=== PATIENT | female | born 1945 | race Caucasian/White ===

== ENCOUNTER 2023-06-25 15:51 | Emergency (ER) | payer MEDICARE, SELFPAY ==
[2023-06-25 15:55] VITALS: BP 162/80; PULSE 100; RESP 16; TEMP 36.7; O2SAT 95; BMI 22.6
--- NOTE | 2023-06-25 16:21 | ED.ABDPAIN ---
HPI - Abdominal Pain <Rosemarie Deluca PA-C - Last Filed: 06/25/23 19:14> General Chief Complaint: Abdominal Pain Stated Complaint: Thinks bowel blockage Time Seen by Provider: 06/25/23 16:04 Source: patient and family Mode of arrival: Wheelchair History of Present Illness HPI narrative: 78-year-old female here in the ED for constipation x1 week. States she has been in bed most of the time due to a knee and shoulder injury. She denies taking opioids. She has tried a Dulcolax suppository and magnesium citrate, other OTC medications without relief. She is passing gas but only a little bit. She reports 7/10 pain at this time. She denies vomiting, fever, chills. patient states she has history of fecal impaction but no history of bowel obstruction. No prior abdominal surgeries. She just took the magnesium citrate 2 hours [employer]. States she has not been hydrating much recently. States the pain comes and goes but is not persistent and feels like gas. States this feels like the time that she had an impaction. States she was manually disimpacted at that time but the treatment that actually helped Was the Fleet enema. Related Data Previous Rx's Medication Instructions Recorded peg 3350-electrolytes 236 240 ml PO Q10M #4,000 mL 06/25/23 gram-22.74 gram-6.74 gram-5.86 gram solution (Golytely) polyethylene glycol 3350 17 17 g PO DAILY #238 grams 06/25/23 gram/dose oral powder (Miralax) Allergies Allergy/AdvReac Type Severity Reaction Status Date / Time SULFA Allergy Unknown SEVERE Uncoded 01/16/18 11:44 ITCHING ON PALMS AND BOTTOM OF FEET AND ANXIOUS Review of Systems <Rosemarie Deluca PA-C - Last Filed: 06/25/23 19:14> Review of Systems ROS Unobtainable: All systems reviewed & are unremarkable except as noted in HPI and below Patient History <Rosemarie Deluca PA-C - Last Filed: 06/25/23 19:14> Social History Smoking Status: Never smoker Smoking Status: Never smoker Substance Use Type: does not use Exam <Rosemarie Deluca PA-C - Last Filed: 06/25/23 19:14> Narrative Exam Narrative: GENERAL: [78] year old patient appears stated age. Well-developed patient, in mild distress. HEAD: Atraumatic. Normocephalic. EYES: Pupils equal round and reactive. Extraocular motions intact. No scleral icterus. No injection or drainage. ENT: Nose without bleeding, purulent drainage. Throat without erythema, tonsillar hypertrophy or exudate. Airway patent. NECK: Trachea midline. Non tender CARDIOVASCULAR: Regular rate and rhythm without murmurs, gallops, or rubs. RESPIRATORY: Clear to auscultation. Breath sounds equal bilaterally. No wheezes, rales, or rhonchi. GASTROINTESTINAL: Abdomen soft, non-tender, nondistended. bowel sounds are active EXTREMITIES: No edema or joint tenderness. BACK: Nontender without deformity or crepitance. No flank tenderness. NEURO: AOx3. SKIN: No rash or erythema of visible areas Initial Vital Signs Initial Vital Signs: Vital Signs Temperature 98.1 F 06/25/23 15:55 Pulse Rate 100 H 06/25/23 15:55 Respiratory Rate 16 06/25/23 15:55 Blood Pressure 162/80 H 06/25/23 15:55 Pulse Oximetry 95 06/25/23 15:55 Oxygen Delivery Method Room Air 06/25/23 15:55 <Emilia Bejarano MD - Last Filed: 06/26/23 05:29> Initial Vital Signs Initial Vital Signs: Vital Signs Temperature 98.1 F 06/25/23 15:55 Pulse Rate 100 H 06/25/23 15:55 Respiratory Rate 16 06/25/23 15:55 Blood Pressure 162/80 H 06/25/23 15:55 Pulse Oximetry 95 06/25/23 15:55 Oxygen Delivery Method Room Air 06/25/23 15:55 Course <Rosemarie Deluca PA-C - Last Filed: 06/25/23 19:14> Orders Ordered: Discontinued Medications Sodium Chloride (Normal Saline 0.9%) 1,000 mls @ 1,000 mls/hr IV BOLUS ONE Stop: 06/25/23 17:31 Last Admin: 06/25/23 18:35 Dose: Not Given Documented By: GILLIAN Lidocaine HCl (Lidocaine 2% (Glydo) 6 Ml Gel) 6 ml TOP NOW ONE Stop: 06/25/23 17:31 Last Admin: 06/25/23 18:00 Dose: 6 ml Documented By: GILLIAN Sodium Biphosphate/Sodium Phosphate (Fleets Enema) 1 each [place] NOW ONE Stop: 06/25/23 16:55 Last Admin: 06/25/23 17:20 Dose: 1 each Documented By: GILLIAN Vital Signs Vital signs: Vital Signs - 8 hr 06/25/23 15:55 Temperature 98.1 F Pulse Rate 100 H Respiratory Rate 16 Blood Pressure 162/80 H Pulse Oximetry 95 Oxygen Delivery Method Room Air <Emilia Bejarano MD - Last Filed: 06/26/23 05:29> Orders Ordered: Discontinued Medications Sodium Chloride (Normal Saline 0.9%) 1,000 mls @ 1,000 mls/hr IV BOLUS ONE Stop: 06/25/23 17:31 Last Admin: 06/25/23 18:35 Dose: Not Given Documented By: GILLIAN Lidocaine HCl (Lidocaine 2% (Glydo) 6 Ml Gel) 6 ml TOP NOW ONE Stop: 06/25/23 17:31 Last Admin: 06/25/23 18:00 Dose: 6 ml Documented By: GILLIAN Sodium Biphosphate/Sodium Phosphate (Fleets Enema) 1 each [place] NOW ONE Stop: 06/25/23 16:55 Last Admin: 06/25/23 17:20 Dose: 1 each Documented By: GILLIAN Vital Signs Vital signs: Vital Signs - 8 hr 06/25/23 15:55 Temperature 98.1 F Pulse Rate 100 H Respiratory Rate 16 Blood Pressure 162/80 H Pulse Oximetry 95 Oxygen Delivery Method Room Air MDM - Abdominal Pain <Rosemarie Deluca PA-C - Last Filed: 06/25/23 19:14> Lab Data 06/25/23 16:34 06/25/23 16:34 Labs: Lab Results 06/25/23 06/25/23 06/25/23 Range/Units 16:34 16:34 16:34 WBC 7.5 (4.5-11.0) X10^3/uL RBC 4.20 (4.0-5.2) X10^6/uL Hgb 13.7 (12.0-16.0) g/dL Hct 39.1 (36-46) % MCV 92.9 (80-100) fL MCH 32.5 (26-34) PG MCHC 35.0 (30-36) % RDW 12.8 (11.6-14.8) % Plt Count 270 (150-400) X10^3/uL Neut % (Auto) 82.5 H (50-75) % Lymph % (Auto) 11.2 L (25-40) % [place] % (Auto) 4.9 (3-14) % Eos % (Auto) 0.9 L (2-4) % Baso % (Auto) 0.5 (0-2) % Neut # (Auto) 6200 (1956-8853) /uL Lymph # (Auto) 800 L (5606-6568) /uL [place] # (Auto) 400 (0-900) /uL Eos # (Auto) 100 (0-450) /uL Baso # (Auto) 0 (0-100) /uL Sodium 136 L (137-145) mmol/L Potassium 4.1 (3.4-5.1) mmol/L Chloride 103 (98-107) mmol/L Carbon Dioxide 26 (22-32) mmol/L BUN 11 (7-17) mg/dL Creatinine 0.59 (0.52-1.04) mg/dL Estimated GFR > 60 (>60) mL/min BUN/Creatinine Ratio 18.6 (6-22) Glucose 101 (80-110) mg/dL Calcium 10.3 H (8.4-10.2) mg/dL Total Bilirubin 0.9 (0.2-1.3) mg/dL AST 34 (14-36) IU/L ALT 22 (<35) IU/L Alkaline Phosphatase 53 (38-126) U/L Ammonia < 9 L (9-30) umol/L Total Protein 7.7 (6.3-8.2) g/dL Albumin 4.6 (3.5-5.0) g/dL Globulin 3.1 (1.7-4.1) g/dL Albumin/Globulin Ratio 1.5 (1.0-2.8) Lipase 145 (23-300) U/L [facility] Narrative Medical decision making narrative: 78-year-old female with history of constipation that required disimpaction but no history of bowel obstruction here for constipation x1 week. She had a fall and sustained a left shoulder and left knee injury so she has been pretty much bed-bound recently and not drinking much water. She denies using any narcotics for the injury. Patient states she is passing gas but not much today. She denies any sudden severe onset pain, nausea, vomiting, fever, chills. Denies any rectal bleeding. She tried a Dulcolax suppository and a bottle of magnesium citrate at home today without any passage of stool. On exam she has reassuring vital signs and no acute distress. Her belly is soft and nontender with active bowel sounds. There is no clinical sign or suspicion of obstruction at this time. Therefore no imaging was obtained. She was given a Fleet enema which resulted in some watery diarrhea but no solid stool. Disimpaction was attempted but there was absolutely no stool in the rectal vault. Patient still shows no clinical signs of obstruction at this time so she appears stable for discharge and will be given a Rx for GoLYTELY and advised to continue MiraLax daily thereafter. We discussed signs and symptoms of acute bowel obstruction and when to return to the ED. Strongly recommend patient follow up with PCP as soon as possible if her constipation issues continue. 1900 patient was being readied for discharge when she started to have a BM on the exam room bed. She was transferred to the toilet to her she continued to have a bowel movement. Patient is feeling a little bit better and she was advised she may not need to drink all of the GoLYTELY at this point. she is still not having any severe abdominal pain, nausea, vomiting, fever and her vital signs are still stable so she is ready for discharge at this time. <Emilia Bejarano MD - Last Filed: 06/26/23 05:29> Lab Data Labs: Lab Results 06/25/23 06/25/23 06/25/23 Range/Units 16:34 16:34 16:34 WBC 7.5 (4.5-11.0) X10^3/uL RBC 4.20 (4.0-5.2) X10^6/uL Hgb 13.7 (12.0-16.0) g/dL Hct 39.1 (36-46) % MCV 92.9 (80-100) fL MCH 32.5 (26-34) PG MCHC 35.0 (30-36) % RDW 12.8 (11.6-14.8) % Plt Count 270 (150-400) X10^3/uL Neut % (Auto) 82.5 H (50-75) % Lymph % (Auto) 11.2 L (25-40) % [place] % (Auto) 4.9 (3-14) % Eos % (Auto) 0.9 L (2-4) % Baso % (Auto) 0.5 (0-2) % Neut # (Auto) 6200 (1513-6869) /uL Lymph # (Auto) 800 L (3934-0951) /uL [place] # (Auto) 400 (0-900) /uL Eos # (Auto) 100 (0-450) /uL Baso # (Auto) 0 (0-100) /uL Sodium 136 L (137-145) mmol/L Potassium 4.1 (3.4-5.1) mmol/L Chloride 103 (98-107) mmol/L Carbon Dioxide 26 (22-32) mmol/L BUN 11 (7-17) mg/dL Creatinine 0.59 (0.52-1.04) mg/dL Estimated GFR > 60 (>60) mL/min BUN/Creatinine Ratio 18.6 (6-22) Glucose 101 (80-110) mg/dL Calcium 10.3 H (8.4-10.2) mg/dL Total Bilirubin 0.9 (0.2-1.3) mg/dL AST 34 (14-36) IU/L ALT 22 (<35) IU/L Alkaline Phosphatase 53 (38-126) U/L Ammonia < 9 L (9-30) umol/L Total Protein 7.7 (6.3-8.2) g/dL Albumin 4.6 (3.5-5.0) g/dL Globulin 3.1 (1.7-4.1) g/dL Albumin/Globulin Ratio 1.5 (1.0-2.8) Lipase 145 (23-300) U/L Discharge Plan Departure Patient Disposition: Home Clinical Impression: Constipation Instructions: DI for Constipation Activity Restrictions/Additional Instructions: You were seen in the emergency department today for constipation and given a Fleet enema. This did not produce a bowel movement so attempted disimpaction which revealed no stool in the rectal vault to be removed. We have given you a prescription for GoLYTELY which is a bowel cleansing prep and we advise you follow the instructions on this until you have clear passage. After that please continue MiraLax daily to achieve at least 1 soft stool per day. Please return if you have any severe abdominal pain, not and vomiting, fevers along no passage of stool or gas. Prescriptions: New peg 3350-electrolytes [Golytely] 236-22.74-6.74 -5.86 gram recon soln 240 ml PO Q10M Qty: 4000 0RF Rx Instructions: until fecal effluent is clear polyethylene glycol 3350 [Miralax] 17 gram/dose powder 17 g PO DAILY Qty: 238 0RF Rx Instructions: start next day after GoLYTELY is completed Referrals: Sonia Wiseman PA-C [Primary Care Provider] - Stand Alone Forms: Patient Portal/API <Emilia Bejarano MD - Last Filed: 06/26/23 05:29> Cosign ED Attending Cosignature Attestation: I was immediately available in the department for consultation throughout this patient's visit. Emilia Bejarano MD
[2023-06-25 16:49] LABS: Add Manual Diff / Slide Review NO; Basophils Absolute Auto 0 /uL (0-100); Basophils Percent Auto 0.5 % (0-2); Eosinophils Absolute Auto 100 /uL (0-450); Eosinophils Percent Auto 0.9 % (2-4); Hematocrit 39.1 % (36-46); Hemoglobin 13.7 g/dL (12.0-16.0); Lymphocytes Absolute Auto 800 /uL (1100-4500); Lymphocytes Percent Auto 11.2 % (25-40); Mean Corpuscular Hemoglobin 32.5 PG (26-34); Mean Corpuscular Volume 92.9 fL (80-100); Monocytes Absolute Auto 400 /uL (0-900); Monocytes Percent Auto 4.9 % (3-14); Neutrophils Absolute Auto 6200 /uL (1500-7000); Neutrophils Percent Auto 82.5 % (50-75); Platelet Count 270 X10^3/uL (150-400); Red Cell Distribution Width 12.8 % (11.6-14.8); White Blood Cell Count 7.5 X10^3/uL (4.5-11.0)
[2023-06-25 17:01] LABS: Alanine Aminotransferase 22 IU/L (<35); Albumin 4.6 g/dL (3.5-5.0); Albumin Globulin Ratio 1.5 (1.0-2.8); Alkaline Phosphatase 53 U/L (38-126); Ammonia (NH3) < 9 umol/L (9-30); Aspartate Aminotransferase 34 IU/L (14-36); BUN Creatinine Ratio 18.6 (6-22); Bilirubin Total 0.9 mg/dL (0.2-1.3); Blood Urea Nitrogen 11 mg/dL (7-17); Calcium 10.3 mg/dL (8.4-10.2); Carbon Dioxide 26 mmol/L (22-32); Chloride 103 mmol/L (98-107); Estimated Glomerular Filt Rate > 60 mL/min (>60); Globulin 3.1 g/dL (1.7-4.1); Glucose 101 mg/dL (80-110); HEMOLYSIS < 15 (0-50); Lipase 145 U/L (23-300); Potassium 4.1 mmol/L (3.4-5.1); Sodium 136 mmol/L (137-145); Total Protein 7.7 g/dL (6.3-8.2)
[2023-06-25] MEDS: FLEETS ENEMA 1 EACH PR (17:20)
[2023-06-25] MEDS: LIDOCAINE 2% (GLYDO) 6 ML GEL TOP (18:00)
[2023-06-25 19:45] VITALS: BP 129/69; RESP 18; TEMP 36.7
== END 2023-06-25 20:03 | disposition home or self-care (01) ==
PROVIDERS: Emergency Provider Physician Assistant; PCP Physician Assistant
DX: K59.00 Constipation, unspecified (principal)
CPT/HCPCS: 36415; 80053; 82140; 83690; 85025; 99283